=== PATIENT | male | born 1945 | race African-American/Black ===

== ENCOUNTER 2016-07-02 11:51 | Emergency (ER) | payer BC, MEDICARE ==
[~2016-07-02 11:51] MED LIST: METF500T4 PO; OXYC5CAP17 PO; PERCOCET PO; TAMS-14 PO; VALS1TAB60 PO
== END 2016-07-02 12:36 | disposition left against medical advice (07) ==
LOC: E/R 11:51
DX: Z53.21 Procedure and treatment not carried out due to patient leaving prior to being seen by health care provider (principal)